=== PATIENT | female | born 1990 | race Caucasian/White ===

== ENCOUNTER 2017-07-04 11:13 | Emergency (ER) | payer OTHER ==
[2017-07-04 11:18] VITALS: TEMP 98
--- NOTE | 2017-07-04 12:28 | C.PDOC ---
History Of Present Illness 26 year old female presents complaining of headache for 2 days. Patient also reports low back pain and dysuria for 3-4 days. States she had a cough and sore throat 2 weeks ago. No fever, vomiting or diarrhea. PMD: None Time Seen by Provider: 07/04/17 11:44 Chief Complaint (Nursing): Back Pain History Per: Patient History/Exam Limitations: no limitations Onset/Duration Of Symptoms: Days (x3-4) Current Symptoms Are (Timing): Still Present Past Medical History Reviewed: Historical Data, Nursing Documentation, Vital Signs Vital Signs: Last Vital Signs Temp 98 F 07/04/17 11:16 Pulse 66 07/04/17 11:16 Resp 18 07/04/17 11:16 BP 115/72 07/04/17 11:16 Pulse Ox 99 07/04/17 12:49 - Medical History Other PMH: Frequent headaches Other Surgeries: D & C Family History: States: Diabetes - Social History Hx Tobacco Use: Yes Hx Alcohol Use: No Hx Substance Use: No - Immunization History Hx Tetanus Toxoid Vaccination: No Hx Influenza Vaccination: No Hx Pneumococcal Vaccination: No Review Of Systems Except As Marked, All Systems Reviewed And Found Negative. Constitutional: Negative for: Fever ENT: Positive for: Throat Pain Respiratory: Positive for: Cough Gastrointestinal: Negative for: Vomiting, Diarrhea Genitourinary: Positive for: Dysuria Musculoskeletal: Positive for: Back Pain Neurological: Positive for: Headache Physical Exam - Physical Exam Appears: Non-toxic, No Acute Distress Skin: Normal Color, Warm, Dry Head: Atraumatic, Normacephalic Eye(s): bilateral: Normal Inspection, PERRL, EOMI Nose: Normal Oral Mucosa: Moist Neck: Normal ROM, Supple Chest: Symmetrical Cardiovascular: Rhythm Regular Respiratory: Normal Breath Sounds, No Accessory Muscle Use, No Wheezing Back: No Vertebral Tenderness, Paraspinal Tenderness (Mild paralumbar tenderness ) Extremity: Normal ROM, No Pedal Edema, No Deformity Neurological/Psych: Oriented x3, Normal Speech ED Course And Treatment O2 Sat by Pulse Oximetry: 99 (RA) Pulse Ox Interpretation: Normal Medical Decision Making Medical Decision Making: Time: 11:59 Initial Plan: * Urine HCG, qualitative * Urinalysis * Urine culture * Motrin 600mg PO Urine: WBC and RBC present in urine. Final Impression: UTI, Low back pain Disposition Counseled Patient/Family Regarding: Studies Performed, Diagnosis, Need For Followup, Rx Given - Disposition Referrals: [facility] [Outside] Disposition: HOME/ ROUTINE Disposition Time: 12:44 Condition: STABLE Additional Instructions: Ms. Medellin, thank you for letting us take care of you today. Ms. Medellin, thank you for letting us take care of you today. Return to the ER if your symptoms worsen, or if any problems. Take the medication listed below as prescribed. Please call our [facility] at the phone number listed below to make a follow up appointment. Prescriptions: Cephalexin [cephalexin] 1 tab PO BID #14 cap Instructions: Urinary Tract Infection in Women (ED) Forms: Gen Discharge Inst [employer] Print Language: YAKUT - POA Present On Arrival: None - Clinical Impression Clinical Impression: Low back pain, UTI (urinary tract infection) - Scribe Statement The provider has reviewed the documentation as recorded by the Scribe (Marquita Pineda) Provider Attestation: All medical record entries made by the Scribe were at my direction and personally dictated by me. I have reviewed the chart and agree that the record accurately reflects my personal performance of the history, physical exam, medical decision making, and the department course for this patient. I have also personally directed, reviewed, and agree with the discharge instructions and disposition.
[2017-07-04 12:37] LABS: SQUAMOUS EPITHIAL 7 /hpf (0-5); URINE BILIRUBIN NEGATIVE (NEGATIVE); URINE BLOOD 3+ (NEGATIVE); URINE CLARITY Hazy (Clear); URINE COLOR Amber (YELLOW); URINE GLUCOSE (UA) NORMAL (Normal); URINE LEUKOCYTE ESTERASE NEG Leu/uL (Negative); URINE NITRATE NEGATIVE (NEGATIVE); URINE PROTEIN 1+ mg/dL (NEGATIVE)
[2017-07-04 12:56] VITALS: BP 110/75; PULSE 71; RESP 16; O2SAT 98
== END 2017-07-04 12:55 | disposition home or self-care (01) ==
LOC: C.ER 11:13
DX: N39.0 Urinary tract infection, site not specified (principal); M54.5 Low back pain